=== PATIENT | male | born 1950 | race African-American/Black ===

== ENCOUNTER 2018-11-10 16:49 | Emergency (ER) | payer MEDICARE ==
[2018-11-10] MEDS ORDERED: DILAUDID IV ONE ×2 (17:32→18:30)
[2018-11-10] MEDS ORDERED: MORPHINE IV ONE (17:32)
[2018-11-10] MEDS ORDERED: NACL 0.9% 1000 ML 1,000 ML IV ONE (17:32)
--- NOTE | 2018-11-10 17:38 | Emergency Department Report ---
ED Abdominal Pain HPI - General Chief Complaint: Extremity Injury, Lower Stated Complaint: LOWER FLANK PAIN/POSS KIDNEY STONE Time Seen by Provider: 11/10/18 17:32 Source: patient, EMS Mode of arrival: Stretcher Limitations: Language Barrier - History of Present Illness Initial Comments: Mr. Floyd is a 68 yo male with hx of HTN who had the gradual onset of left flank pain 4 hour prior to arrival. Severe 7/10 paln without relief with Toradol provided by EMS. No previous hx of kidney stone. No radiation. No injury. MD Complaint: flank pain -: Gradual, hour(s) (4) Location: L flank Radiation: none Severity scale (0 -10): 7 Quality: aching Consistency: constant Improves With: nothing Worsens With: nothing - Related Data Previous Rx's Medication Instructions Recorded Last Taken Type HYDROcodone/APAP 5-325 [[place] 1 each PO Q6HR PRN #10 tablet 11/10/18 Unknown Rx 5/325] Tamsulosin [Flomax] 0.4 mg PO QDAY #5 cap 11/10/18 Unknown Rx Allergies Allergy/AdvReac Type Severity Reaction Status Date / Time No Known Allergies Allergy Unverified 03/29/15 13:18 ED Review of Systems ROS: Stated complaint: LOWER FLANK PAIN/POSS KIDNEY STONE Other details as noted in HPI Comment: All other systems reviewed and negative Constitutional: denies: fever, malaise Respiratory: denies: cough Gastrointestinal: nausea Musculoskeletal: back pain ED Past Medical Hx - Past Medical History Previous Medical History?: Yes Hx Hypertension: Yes - Surgical History Past Surgical History?: No - Family History Family history: no significant - Social History Smoking Status: Never Smoker Substance Use Type: None - Medications Home Medications: Home Medications Medication Instructions Recorded Confirmed Last Taken Type HYDROcodone/APAP 5-325 [[place] 1 each PO Q6HR PRN #10 tablet 11/10/18 Unknown Rx 5/325] Tamsulosin [Flomax] 0.4 mg PO QDAY #5 cap 11/10/18 Unknown Rx ED Physical Exam - General Limitations: Language Barrier General appearance: alert, in no apparent distress, other (appears uncomfortable) - Head Head exam: Present: atraumatic, normocephalic - Eye Eye exam: Present: normal appearance - ENT ENT exam: Present: mucous membranes moist - Neck Neck exam: Present: normal inspection, full ROM - Respiratory Respiratory exam: Present: normal lung sounds bilaterally. Absent: respiratory distress, wheezes, rales, rhonchi - Cardiovascular Cardiovascular Exam: Present: regular rate, normal rhythm, normal heart sounds. Absent: systolic murmur, diastolic murmur, rubs, gallop - GI/Abdominal GI/Abdominal exam: Present: soft, normal bowel sounds. Absent: distended, tenderness, guarding, rebound - Rectal Rectal exam: Present: deferred - Extremities Exam Extremities exam: Present: normal inspection - Back Exam Back exam: Present: normal inspection. Absent: CVA tenderness (L) - Neurological Exam Neurological exam: Present: alert, oriented X3 - Psychiatric Psychiatric exam: Present: normal affect, normal mood - Skin Skin exam: Present: warm, dry, intact, normal color. Absent: rash ED Course Vital Signs 11/10/18 17:33 Temperature 97.8 F Pulse Rate 67 Respiratory 18 Rate Blood Pressure 117/70 [Right] O2 Sat by Pulse 98 Oximetry - Reevaluation(s) Reevaluation #1: 11/10/18 18:30 I reassessed After receiving 1 mg hydromorphone, the pain was 0 now returned to 12/24 ED Medical Decision Making - Lab Data Result diagrams: 11/10/18 17:37 11/10/18 17:37 - Radiology Data Radiology results: report reviewed, image reviewed 2.7 mm calculus at the left UVJ with mild hydronephrosis: CT scan - Medical Decision Making Left renal colic, left kidney stone: No signs of sepsis. I did see leukocytosis I do not suspect pyonephrosis or high risk for infection. Prescribed: Flomax [place]. Pain was easily controlled. Discharged home with urine strainer and referred to urologist Critical care attestation.: If time is entered above; I have spent that time in minutes in the direct care of this critically ill patient, excluding procedure time. ED Disposition Clinical Impression: Renal colic on left side, Kidney stone on left side Disposition: TO HOME OR SELFCARE Is pt being admited?: No Does the pt Need Aspirin: No Condition: Stable Instructions: Kidney Stones (ED) Prescriptions: Tamsulosin [Flomax] 0.4 mg PO QDAY #5 cap HYDROcodone/APAP 5-325 [[place] 5/325] 1 each PO Q6HR PRN #10 tablet PRN Reason: Pain Referrals: DONN PONCE MD [Staff Physician] - 3-5 Days
[2018-11-10 17:49] LABS: Basophils % (Auto) 0.1 % (0.0-1.8); Eosinophils % (Auto) 0.2 % (0.0-4.3); Hematocrit 46.2 % (35.5-45.6); Hemoglobin 15.7 gm/dl (11.8-15.2); Lymphocytes # (Auto) 0.9 K/mm3 (1.2-5.4); Lymphocytes % (Auto) 6.1 % (13.4-35.0); Mean Corpuscular HGB Conc 34 % (32-34); Mean Corpuscular Volume 92 fl (84-94); Monocytes # (Auto) 0.6 K/mm3 (0.0-0.8); Monocytes % (Auto) 3.8 % (0.0-7.3); Platelet Count 235 K/mm3 (140-440); Red Blood Count 5.01 M/mm3 (3.65-5.03); Red Cell Distribution Width 13.2 % (13.2-15.2)
[2018-11-10 18:02] LABS: Calcium 8.9 mg/dL (8.4-10.2)
[2018-11-10 20:24] LABS: Bilirubin,Urine NEG (Negative); Blood,Urine LG (Negative); Color,Urine Yellow (Yellow); Mucus,Urine FEW /HPF; Protein,Urine <15 mg/dL mg/dL (Negative); Urobilinogen,Urine < 2.0 mg/dL (<2.0)
--- NOTE | 2018-11-10 20:32 | Cat Scan Report ---
PROCEDURE: CT ABDOMEN PELVIS WO CON TECHNIQUE: Computerized axial tomography of the abdomen and pelvis was performed without intravenous contrast. This study is performed without intravascular contrast material and its sensitivity for ab dominal and pelvic pathology, including neoplasms, inflammation, abscess, free fluid, thrombosis, art erial dissection and infarction, is reduced compared with a contrast enhanced study. CT DOSE LENGTH PRODUCT: 523.5 mGycm HISTORY: left flank pain COMPARISONS: None . FINDINGS: Visualized lower thorax: No significant abnormality. Liver: Normal size and attenuation. Spleen: Normal size and attenuation. Gallbladder and biliary system: Normal. Pancreas: Normal. Adrenals: Normal. Kidneys: There is a 2.7 cm calculus in the left ureterovesical junction associated with mild hydronep hrosis of left kidney. There is a 2.2 cm low-density cyst off the midpole right kidney. There are mul tiple nonobstructing tiny calculi in both kidneys. GI tract: Normal . The appendix is normal. Lymph nodes and mesentery: Normal. Vasculature: Normal.. Bladder: Normal. Reproductive organs: Normal. Peritoneum: No free fluid. Musculoskeletal structures: Unilateral spondylolysis to the left at L5 is noted. Other: None. IMPRESSION: 1. Obstructing calculus in the left ureterovesical junction with mild hydronephrosis of left kidney 2. Multiple tiny nonobstructing calculi in both kidneys 3. Low-density cyst in the right kidney This document is electronically signed by Lety Wang MD., Nov 10 2018 08:30:35 PM ET
[2018-11-10 21:13] VITALS: BP 122/73
== END 2018-11-10 21:13 | disposition home or self-care (01) ==
LOC: ED 16:49
DX: N20.0 Calculus of kidney (principal); I10 Essential (primary) hypertension
CPT/HCPCS: 36415; 74176; 80048; 81001; 85025; 96374; 96376; 99285; J1170; J7030; J2270